=== PATIENT | male | born 1980 | race Caucasian/White ===

== ENCOUNTER 2025-06-23 07:10 | Day surgery (SDC) | payer MEDICAID ==
[~2025-06-23] VITALS: Ht 180.3 cm; Wt 81.0 kg
[2025-06-23] VITALS (14 sets, daily range): BP systolic 121–131; BP diastolic 79–95; PULSE 78–91; RESP 14–17; TEMP 97.6; O2SAT 91–98
[~2025-06-23 07:10] MED LIST: AMIL5TAB3 PO; FURO20TA4 PO; MULT-1085 PO; NALT50TA5 PO; ringers solution, lacted 1,000 ML IV SCH
[2025-06-23] MEDS ORDERED: simethicone 40mg/0.6ml oral drops 15ml ONE (08:00)
[2025-06-23] MEDS ORDERED: LIDOcaine 2% Viscous 15ml cup ONE (08:24)
[2025-06-23] MEDS ORDERED: fentaNYL/PF 50MCG/1 ML 2ML syringe ONE (09:14)
[2025-06-23] MEDS ORDERED: MIDAZolam 1 MG/ML 5ML VIAL ONE (09:14)
== END 2025-06-23 11:37 | disposition home or self-care (01) ==
LOC: PAS 07:10
PROVIDERS: ATTEND Internal Medicine Gastroenterology
DX: D50.0 Iron deficiency anemia secondary to blood loss (chronic) (principal); I85.00 Esophageal varices without bleeding; K31.89 Other diseases of stomach and duodenum; K76.6 Portal hypertension; K70.30 Alcoholic cirrhosis of liver without ascites; N28.9 Disorder of kidney and ureter, unspecified; F17.210 Nicotine dependence, cigarettes, uncomplicated; Z79.899 Other long term (current) drug therapy
CPT/HCPCS: 43239; 43244; 99152; J2250; J3010; J7120; Z7512; 99153